=== PATIENT | female | born 1940 | race Two or more races ===

== ENCOUNTER 2020-01-28 08:17 | Emergency (ER) | payer OTHER ==
[~2020-01-28] VITALS: Ht 149.9 cm; Wt 43.5 kg
== END 2020-01-28 09:18 | disposition home or self-care (01) ==
LOC: ER 08:17
DX: S81.822A Laceration with foreign body, left lower leg, initial encounter (principal); W45.8XXA Other foreign body or object entering through skin, initial encounter; Y93.89 Activity, other specified; Y92.89 Other specified places as the place of occurrence of the external cause; Y99.8 Other external cause status; I86.8 Varicose veins of other specified sites

== ENCOUNTER 2020-02-11 09:36 | Emergency (ER) | payer OTHER ==
[~2020-02-11] VITALS: Ht 152.4 cm; Wt 43.5 kg
[2020-02-11] MEDS ORDERED: BACITRAYCIN PLU28 GM TOP (10:12)
== END 2020-02-11 10:27 | disposition home or self-care (01) ==
LOC: ER 09:36
DX: Z48.02 Encounter for removal of sutures (principal)